=== PATIENT | female | born 1940 | race Caucasian/White ===

== ENCOUNTER 2017-02-26 10:40 | Emergency (ER) | payer OTHER ==
[2017-02-26 10:50] VITALS: TEMP 99.5
[2017-02-26] MEDS ORDERED: IBUPROFEN 600 MG TAB PO ONE (11:11)
[2017-02-26] MEDS ORDERED: BENZONATATE 100 MG CAP PO ONE (11:11)
--- NOTE | 2017-02-26 11:20 | EDPHY ---
H & P Time Seen by Provider: 02/26/17 10:49 HPI/ROS: HPI Cough, congestion, fatigue. 76-year-old female by private vehicle with her . This patient complains of cough, congestion, fatigue off and on for the last month. She reports over the last week she has felt worse. Complaining of fatigue, continued cough, mild muscle aches and joint aches and nasal congestion with clear rhinorrhea. She recently completed a course of Augmentin, 10 day course, completing this several days ago. She was taking this for a vaginal infection. She tried to get in to see her primary care physician today but was unable to do so. She denies fever. ROS: Constitutional: No fever, no chills. As above. Eyes: No discharge. No changes in vision. ENT: No sore throat. As above. Respiratory: As above. No shortness of breath. Cardiac: No chest pain, no palpitations. Gastrointestinal: No abdominal pain, no vomiting, no diarrhea. Genitourinary: No hematuria. No dysuria or increased frequency with urination. Musculoskeletal: No back pain. No neck pain. No myalgias or arthralgias. Skin: No rashes. Neurological: No headache. No focal weakness or altered sensation. Past medical history: CLL, thrombocytopenia, breast cancer with left lumpectomy , GERD, tonsillectomy, chronic tachycardia. Social history: Nonsmoker. No alcohol. Here with her . Physical Exam: General Appearance: Alert, no distress. This patient is responding to questions appropriately and in full sentences. This patient appears well- hydrated and well-nourished. Eyes: Pupils equal and round no pallor or injection. No lid edema, erythema or injection. ENT, Mouth: Mucous membranes are moist. The pharyngeal tissues are unremarkable. No edema or swelling. No asymmetry suggestive of abscess. No erythema or exudates. Respiratory: There are no retractions, lungs are clear to auscultation with good air movement bilaterally. Cardiovascular: Regular rate and rhythm. No murmur. Neurological: Motor sensory function is grossly intact. Cranial nerves are normal. Gait is normal. Skin: Warm and dry, no rashes. Musculoskeletal: Neck is supple and nontender. Mild upper left-sided anterior cervical lymphadenopathy. Otherwise no submental, no submandibular lymphadenopathy. Extremities are symmetrical. All joints range without pain or impingement. Psychiatric: No agitation. No depression. Database: EKG: Imaging: Chest x-ray PA and lateral; the cardiac mediastinal silhouette is unremarkable. No evidence of infiltrate or pneumothorax. No acute cardiopulmonary disease process noted. Interpreted by me. Procedures: Emergency department course: IV was placed. Vital signs reviewed. Will check a CBC given her past medical history. Chest x-ray to be obtained. Also will evaluate her for influenza. If positive will treat with Tamiflu. Patient given 200 mg of Tessalon parole and 600 mg of ibuprofen. 12:45 p.m., patient re-evaluated. She is resting comfortably at this time. She states she is feeling better. I discussed the results of her blood work, influenza assays a and chest x-ray. Her leukocytosis and thrombocytosis are close to baseline. She feels comfortable going home and I feel she is safe for discharge. I do not feel that antibiotics are indicated at this time. I feel she likely has a viral syndrome. Serious bacterial infection is unlikely. She will follow up with her primary care physician or oncologist Dr. Espinosa on Wednesday or Wednesday of this week for re-evaluation. Until follow-up, I discussed the importance of returning to the emergency department for any worsening symptoms or other concerns. She can easily do this if need be. All of her questions were answered. She was discharged in good condition. Differential Diagnosis: The differential diagnosis on this patient includes but is not limited to viral syndrome, influenza. Pneumonia, other serious bacterial infection unlikely. This represents a partial list of diagnoses considered. These considerations are based on history, physical exam, past history, reassessment and diagnostic testing. Smoking Status: Former smoker Constitutional: Initial Vital Signs Temperature (C) 37.5 C 02/26/17 10:45 Heart Rate 106 H 02/26/17 10:45 Respiratory Rate 18 02/26/17 10:45 Blood Pressure 128/79 H 02/26/17 10:45 O2 Sat (%) 95 02/26/17 10:45 O2 Delivery Mode Room Air Allergies/Adverse Reactions: No Known Allergies Allergy (Verified 02/26/17 10:50) Home Medications: Medication Instructions Recorded Aspirin [Aspirin 81mg (*)] 81 mg PO DAILY 04/19/15 Hydroxyurea [Hydrea 500 mg (*)] 500 mg PO DAILY 04/19/15 Ranitidine HCl [Zantac] 150 mg PO BID 04/19/15 Benzonatate [Tessalon Pearles] 100 mg PO TID #12 cap 02/26/17 Medical Decision Making - Diagnostics Imaging Results: Imaging Impressions Chest X-Ray 02/26/17 11:01 Impression: 1. Minimal right basilar atelectasis. Otherwise nothing acute. 2. 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 - Data Points Laboratory Results: Laboratory Results 02/26/17 11:25 02/26/17 11:25 02/26/17 02/26/17 02/26/17 11:25 11:25 11:25 WBC 17.76 10^3/uL H 10^3/uL (3.80-9.50) RBC 4.61 10^6/uL 10^6/uL (4.18-5.33) Hgb 14.1 g/dL g/dL (12.6-16.3) Hct 42.6 % % (38.0-47.0) MCV 92.4 fL fL (81.5-99.8) MCH 30.6 pg pg (27.9-34.1) MCHC 33.1 g/dL g/dL (32.4-36.7) RDW 12.4 % % (11.5-15.2) Plt Count 494 10^3/uL H 10^3/uL (150-400) MPV 9.5 fL fL (8.7-11.7) Neut % (Auto) 48.0 % % (39.3-74.2) Lymph % (Auto) 48.6 % H % (15.0-45.0) [place] % (Auto) 2.5 % L % (4.5-13.0) Eos % (Auto) 0.3 % L % (0.6-7.6) Baso % (Auto) 0.3 % % (0.3-1.7) Nucleat RBC Rel Count 0.0 % % (0.0-0.2) Absolute Neuts (auto) 8.53 10^3/uL H 10^3/uL (1.70-6.50) Absolute Lymphs (auto) 8.64 10^3/uL H 10^3/uL (1.00-3.00) Absolute Monos (auto) 0.44 10^3/uL 10^3/uL (0.30-0.80) Absolute Eos (auto) 0.05 10^3/uL 10^3/uL (0.03-0.40) Absolute Basos (auto) 0.05 10^3/uL 10^3/uL (0.02-0.10) Absolute Nucleated RBC 0.00 10^3/uL 10^3/uL (0-0.01) Immature Gran % 0.3 % % (0.0-1.1) Seg Neutrophils % 44 % % Band Neutrophils % 3 % % Lymphocytes % 52 % % Monocytes % 1 % % Immature Gran # 0.05 10^3/uL 10^3/uL (0.00-0.10) Absolute Seg Neuts 7.8 K/MM3 H K/MM3 (1.8-7) Absolute Band Neuts 0.5 K/MM3 K/MM3 (0-0.7) Absolute Lymphocytes 9.2 K/mm3 H K/mm3 (1.0-4.8) Absolute Monocytes 0.2 K/mm3 K/mm3 (0-0.8) Smudge Cells 2+ H Platelet Estimate INCREASED H (ADEQ) Large Platelets PRESENT H Giant Platelets PRESENT H Bizarre Platelets PRESENT H Smear Review By Pending Sodium 140 mEq/L mEq/L (134-144) Potassium 4.0 mEq/L mEq/L (3.5-5.2) Chloride 102 mEq/L mEq/L (97-110) Carbon Dioxide 25 mEq/l mEq/l (22-31) Anion Gap 13 mEq/L mEq/L (8-16) BUN 12 mg/dL mg/dL (7-23) Creatinine 0.7 mg/dL mg/dL (0.6-1.0) Estimated GFR > 60 Glucose 99 mg/dL mg/dL (70-100) Calcium 9.0 mg/dL mg/dL (8.5-10.4) Influenza A,B Rapid NEGATIVE FOR FLU (NEGATIVE) Medications Given: Discontinued Medications Benzonatate (Tessalon Pearles) 200 mg PO EDNOW ONE Stop: 02/26/17 11:12 Last Admin: 02/26/17 11:14 Dose: 200 mg Ibuprofen (Motrin) 600 mg PO EDNOW ONE Stop: 02/26/17 11:12 Last Admin: 02/26/17 11:14 Dose: 600 mg Departure - Departure Disposition: Home, Routine, Self-Care Clinical Impression: Bronchitis, Viral syndrome Condition: Good Instructions: Acute Bronchitis (ED), Viral Syndrome (ED) Additional Instructions: Read and follow provided instructions. Follow-up with your primary care physician or with Dr. Shasha Laura as referred below early next week for re-evaluation. Take medication as prescribed for cough. You can also take NyQuil as directed in the evening to help you sleep and for decongestion. Return to the emergency department for worsening symptoms, fever or other serious concerns. Referrals: Jaiden Espinosa MD [Primary Care Provider] - As per Instructions Shasha Laura MD [Medical Doctor] - As per Instructions Prescriptions: Benzonatate [Tessalon Pearles] 100 mg PO TID #12 cap
[2017-02-26 11:31] LABS: % IMMATURE GRANULYOCYTES 0.3 % (0.0-1.1); ABSOLUTE IMMATURE GRANULOCYTES 0.05 10^3/uL (0.00-0.10); ADD DIFF? NO; ADD MORPH? NO; ADD SCAN? YES; ATYPICAL LYMPHOCYTE FLAG 0 (0-99); FRAGMENT RBC FLAG 0 (0-99); HEMATOCRIT 42.6 % (38.0-47.0); HEMOGLOBIN 14.1 g/dL (12.6-16.3); LEFT SHIFT FLG 0 (0-99); LIPEMIA HEMOLYSIS FLAG 80 (0-99); MEAN CELL HEMOGLOBIN 30.6 pg (27.9-34.1); MEAN CELL HEMOGLOBIN CONCENTR. 33.1 g/dL (32.4-36.7); MEAN CELL VOLUME 92.4 fL (81.5-99.8); MEAN PLATELET VOLUME 9.5 fL (8.7-11.7); PLATELET CLUMPS FLAG 10 (0-99); PLATELET COUNT 494 10^3/uL (150-400); RED BLOOD CELL COUNT 4.61 10^6/uL (4.18-5.33); RED CELL DISTRIBUTION WIDTH 12.4 % (11.5-15.2)
[2017-02-26 11:48] LABS: ANION GAP 13 mEq/L (8-16); CARBON DIOXIDE 25 mEq/l (22-31); CHLORIDE 102 mEq/L (97-110); CREATININE 0.7 mg/dL (0.6-1.0); GLOMERULAR FILTRATION RATE > 60; GLUCOSE 99 mg/dL (70-100); SODIUM 140 mEq/L (134-144)
[2017-02-26 12:10] LABS: SCAN POSITIVE
[2017-02-26 12:11] LABS: PLATELET ESTIMATE INCREASED (ADEQ)
[2017-02-26 12:12] LABS: GIANT PLATELETS PRESENT; LARGE PLATELETS PRESENT; SMUDGE CELLS 2+
[2017-02-26 12:19] VITALS: BP 135/70; PULSE 82; RESP 16; O2SAT 94
== END 2017-02-26 13:00 | disposition home or self-care (01) ==
LOC: CED 10:40
DX: B34.9 Viral infection, unspecified (principal); J40 Bronchitis, not specified as acute or chronic; Z79.82 Long term (current) use of aspirin; Z85.3 Personal history of malignant neoplasm of breast; Z87.891 Personal history of nicotine dependence
CPT/HCPCS: 71020-PO; 80048-PO; 85025-PO; 87400-PO

== ENCOUNTER → 2018-01-28 | Outpatient (CLI) | payer OTHER | LOC: CIMAGING 14:41 | PROVIDERS: ATTEND Internal Medicine | DX: M54.9 Dorsalgia, unspecified (principal); M53.86 Other specified dorsopathies, lumbar region; M41.85 Other forms of scoliosis, thoracolumbar region | CPT/HCPCS: 72100-PO ==

== ENCOUNTER → 2018-08-24 | Outpatient (CLI) | payer OTHER | LOC: CIMAGING 14:14 ==